=== PATIENT | male | born 1990 | race African-American/Black ===

== ENCOUNTER 2016-11-10 08:39 | Emergency (ER) | payer OTHER ==
[~2016-11-10] VITALS: Ht 177.8 cm; Wt 93.0 kg
[~2016-11-10 08:39] MED LIST: IBUP-1060 PO; ONDA4TAB7 PO
[2016-11-10] MEDS ORDERED: ONDANSETRON ODT 4 MG TAB.RAPDIS PO ONE (09:45)
[2016-11-10] MEDS ORDERED: AZITHROMYCIN 250 MG TABLET PO ONE (09:45)
[2016-11-10] MEDS ORDERED: CEFTRIAXONE IM 250 MG VIAL. IM ONE (09:45)
[2016-11-10] MEDS ORDERED: METRONIDAZOLE 500 MG TABLET. PO ONE (09:45)
[2016-11-10 10:03] LABS: BILIRUBIN,URINE SMALL (NEG); GLUCOSE,URINE 100 mg/dL (NEG); NITRITE,URINE NEGATIVE (NEG); PROTEIN,URINE 30 mg/dL (NEG-TRACE)
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
[2016-11-10 10:12] LABS: BASO # 0.1 x10^3/uL (0.0-0.2); BASO % 1 % (0-3); EOS % 0 % (0-3); HEMATOCRIT 50.7 % (39.0-53.0); HEMOGLOBIN 17.1 g/dL (13.0-17.5); LYMPH % 10 % (24-48); MEAN CORPUSCULAR HEMOGLOBIN 28 pg (25-35); MEAN CORPUSCULAR HGB CONC 34 g/dL (31-37); MEAN CORPUSCULAR VOLUME 82 fL (79-100); MONO % 4 % (0-9); NEUT % 85 % (31-73); PLATELET COUNT 296 x10^3/uL (140-400); RED BLOOD COUNT 6.19 x10^6/uL (4.30-5.70); RED CELL DISTRIBUTION WIDTH 14.1 % (11.5-14.5); WHITE BLOOD COUNT 9.7 x10^3/uL (4.0-11.0)
[2016-11-10 10:32] LABS: CALCIUM 10.2 mg/dL (8.5-10.1); CREATININE 1.2 mg/dL (0.7-1.3); POTASSIUM 3.4 mmol/L (3.5-5.1)
[2016-11-10 10:34] LABS: BACTERIA,URINE 0 /HPF (0-FEW); RBC,URINE 0 /HPF (0-2); SQUAMOUS EPITHELIAL CELL,UR FEW /LPF; WBC,URINE RARE /HPF (0-4)
[2016-11-10 10:37] LABS: ALBUMIN 4.6 g/dL (3.4-5.0); TOTAL BILIRUBIN 1.1 mg/dL (0.2-1.0)
[2016-11-10] MEDS ORDERED: CIPR500T94 PO (10:41)
[2016-11-10] MEDS ORDERED: ONDA4TAB10 SL (10:45)
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
[2016-11-10 11:14] VITALS: BP 141/88
== END 2016-11-10 11:46 | disposition home or self-care (01) ==
LOC: ER 08:39
DX: N39.0 Urinary tract infection, site not specified (principal); R11.2 Nausea with vomiting, unspecified; J45.909 Unspecified asthma, uncomplicated
CPT/HCPCS: 36415; 74022; 80053; 81001; 85027; 87086; 87491; 87591; 96372; 99285; J0696; Q0144; Q0162